=== PATIENT | male | born 1990 | race Two or more races ===

== ENCOUNTER 2017-09-02 14:53 | Emergency (ER) | payer OTHER ==
[~2017-09-02] VITALS: Ht 177.8 cm; Wt 93.0 kg
[2017-09-02] MEDS ORDERED: ONDANSETRON 4MG ODT PO STA (21:27)
[2017-09-02] MEDS ORDERED: KETOROLAC 60MG/2ML VIAL IM STA (21:27)
[2017-09-02] MEDS ORDERED: FAMOTIDINE 20MG/2ML VIAL IV STA (21:27)
[2017-09-02] MEDS ORDERED: SODIUM CHLORIDE 0.9% 1,000 ML IV ONE (21:27)
[2017-09-02 21:39] LABS: CLARITY URINE CLEAR (CLEAR); COLOR URINE YELLOW (YELLOW); KETONES URINE TRACE (NEGATIVE); LEUKOCYTE ESTERASE URINE NEGATIVE (NEGATIVE); NITRITE URINE NEGATIVE (NEGATIVE); OCCULT BLOOD URINE NEGATIVE (NEGATIVE); PH URINE 6.5 (4.5-8.0); PROTEIN URINE NEGATIVE (NEGATIVE); SPECIFIC GRAVITY URINE 1.022 (1.005-1.030); UROBILINOGEN URINE 0.2 E.U./dL (0.2-1.0)
[2017-09-02 21:45] LABS: HEMATOCRIT. 48.7 % (42.0-52.0); HEMOGLOBIN. 16.3 g/dL (14.0-18.0); MEAN CORPUSCULAR HEMOGLOBIN 29.4 pg (28.0-32.0); MEAN PLATELET VOLUME 9.2 fl (7.4-10.4); PLATELET 146 x1000/uL (130-400); RED BLOOD CELL COUNT 5.54 mill/uL (4.7-6.1); RED CELL DISTRIBUTION WIDTH 13.9 % (11.6-14.6)
[2017-09-02 21:53] LABS: INR 1.1; PROTHROMBIN TIME 11.5 sec (9.4-11.6)
[2017-09-02 21:59] LABS: CARBON DIOXIDE 31 mEq/L (21-32); CHLORIDE 100 mEq/L (98-107)
[2017-09-03 01:17] VITALS: BP 116/69
[2017-09-03 02:48] LABS: ATYPICAL LYMPHOCYTES 2
[2017-09-03 02:49] LABS: PLATELET ESTIMATE NORMAL
== END 2017-09-03 01:55 | disposition home or self-care (01) ==
LOC: ER 14:53
DX: R10.31 Right lower quadrant pain (principal); J06.9 Acute upper respiratory infection, unspecified
CPT/HCPCS: 36415; 71045; 74176; 80053; 81003; 83690; 85025; 85610; 96361; 96372; 96374; 99285; J1885; J3490; J7030; Q0162; Z7610